=== PATIENT | male | born 1940 | race Caucasian/White ===

== ENCOUNTER → 2020-02-16 | Day surgery (SDC) | payer MEDICARE, BC ==
[~2020-02-16] MED LIST: Dextrose 5%-Lactated Ringers 1,000 ML IV SCH; Propofol 200 MG/20 ML SDV ONE
--- NOTE | 2020-02-22 10:28 | OR ---
DATE OF PROCEDURE: 02/16/2020 SURGEON: Hi Garcia MD PREOPERATIVE DIAGNOSIS: Probable recent upper GI bleeding with development of significant anemia. POSTOPERATIVE DIAGNOSES: 1. Probable recent upper GI bleeding with development of significant anemia. 2. Erosive antral gastritis (no active bleeding). OPERATIVE PROCEDURE: Esophagogastroduodenoscopy with antral biopsies for CLOtest. ANESTHESIA: IV sedation. INDICATION FOR PROCEDURE: This is an 79-year-old presenting with some recent episodes of some black stools and the hemoglobin had fallen from 13 to 9. The patient was noted to have a high pro time with an INR in excess of 4. He has held that, and present INR today is down to 2.2. The plan is to proceed with upper GI endoscopy with biopsies as indicated. Potential risks including bleeding and perforation were discussed, and the patient wishes to proceed. DETAILS OF PROCEDURE: The patient was taken to the operating room, placed in a left lateral decubitus position. IV sedation was administered, after which the upper GI endoscope was passed orally through the esophagus and into the stomach, with retroflexion view of the fundus, and thereafter through the pyloric channel into the junction of the 3rd and 4th portions of the duodenum. Findings included normal hypopharynx, larynx, upper esophageal sphincter, esophageal body. At the EG junction there was no significant hiatal hernia nor was there inflammation or signs of plaquing or neoplasia. Within the stomach there was small amount of retained bile. The proximal stomach was relatively unremarkable; however, in the antrum, there was quite intense gastritis with several erosions. These were presently covered with some fibrinous type exudate. These appeared to be healing and were not associated with any active bleeding. The pyloric channel and visualized portions of the duodenum were otherwise unremarkable. At this point, biopsies were obtained from the antrum and sent for CLOtest for H. pylori. Minimal bleeding from the biopsy sites was seen, and the procedure was then concluded. The patient will be started on Pepcid 40 mg daily and Vitron-C 1 tablet daily and he will be set up to see Dr. Hamilton in 2 weeks for the CBC, ferritin, B12, and folate levels to be drawn at that time. We will have the [facility] nurses contact [facility] to get a schedule for restarting the patient's Coumadin, obviously at a somewhat lower low-dose than which he has been taking. Hi Garcia MD /[id number]
== END ==
LOC: JP.SDS 08:14
PROVIDERS: ATTEND Surgery
DX: K29.70 Gastritis, unspecified, without bleeding (principal); K25.9 Gastric ulcer, unspecified as acute or chronic, without hemorrhage or perforation; J44.9 Chronic obstructive pulmonary disease, unspecified; I11.0 Hypertensive heart disease with heart failure; I50.9 Heart failure, unspecified; E78.5 Hyperlipidemia, unspecified; G47.33 Obstructive sleep apnea (adult) (pediatric); Z11.59 Encounter for screening for other viral diseases; Z99.89 Dependence on other enabling machines and devices
CPT/HCPCS: 36415; 43239; 85610; 87081; J2704; U0002

== ENCOUNTER 2021-11-18 09:19 | Emergency (ER) | payer MEDICARE, BC ==
[2021-11-18 10:56] LABS: CORONAVIRUS COVID-19 NAA POSITIVE (NEGATIVE)
== END 2021-11-18 12:40 | disposition home or self-care (01) ==
LOC: JP.ED 09:19
DX: U07.1 COVID-19 (principal); J40 Bronchitis, not specified as acute or chronic; Z88.0 Allergy status to penicillin; Z88.1 Allergy status to other antibiotic agents; Z88.8 Allergy status to other drugs, medicaments and biological substances; Z79.82 Long term (current) use of aspirin; Z79.01 Long term (current) use of anticoagulants; Z79.899 Other long term (current) drug therapy; Z86.73 Personal history of transient ischemic attack (TIA), and cerebral infarction without residual deficits; Z87.891 Personal history of nicotine dependence
CPT/HCPCS: 0241U; 36415; 71045; 80053; 85025; 99282; 99284-25

== ENCOUNTER 2024-12-19 17:35 | Emergency (ER) | payer MEDICARE, BC ==
[2024-12-19] MEDS: Aspirin 81 MG Tab.Chew PO ONE (18:31)
[2024-12-19 18:40] LABS: BASOPHILS ABSOLUTE AUTO 0.04 K/uL (0.00-0.10); BASOPHILS PERCENT AUTO 0.4 % (0.1-1.3); EOSINOPHILS ABSOLUTE AUTO 0.04 K/uL (0.00-0.40); EOSINOPHILS PERCENT AUTO 0.4 % (0.0-5.4); HEMATOCRIT 31.4 % (38.4-49.7); IMMATURE GRAN ABSOLUTE AUTO 0.03 K/uL (0.00-0.23); IMMATURE GRAN PERCENT AUTO 0.3 % (0.0-0.7); LYMPHOCYTES PERCENT AUTO 14.1 % (11.4-47.7); MEAN CORPUSCULAR HEMOGLOBIN 25.1 pg (31.6-35.5); MEAN CORPUSCULAR HGB CONC 28.7 g/dL (31.6-35.5); MEAN CORPUSCULAR VOLUME 87.5 fL (81.4-99.0); MONOCYTES ABSOLUTE AUTO 0.84 K/uL (0.20-0.90); MONOCYTES PERCENT AUTO 9.1 % (3.3-12.6); NEUTROPHILS ABSOLUTE AUTO 6.96 K/uL (1.0-7.6); NEUTROPHILS PERCENT AUTO 75.7 % (40.0-78.1); PLATELET COUNT,PLT 182 K/uL (130-375); WHITE BLOOD CELL COUNT,WBC 9.2 K/uL (3.2-11.0)
[2024-12-19 18:51] LABS: RED BLOOD CELL COUNT 3.59 M/uL (4.14-5.76)
[2024-12-19 19:01] LABS: INR 2.1; PROTHROMBIN TIME 21.2 sec (9.2-10.6)
[2024-12-19 19:04] LABS: A/G RATIO 0.7 (1.2-2.2); ALANINE AMINOTRANSFERASE,ALT 19 U/L (12-78); ALBUMIN 3.3 g/dL (3.4-5.0); ALKALINE PHOSPHATASE 84 U/L (46-116); ASPARTATE AMNIOTRANSFERASE,AST 18 U/L (15-37); BILIRUBIN TOTAL 1.3 mg/dL (0.2-1.0); BLOOD UREA NITROGEN,BUN 30 mg/dL (7-18); CALCIUM 9.2 mg/dL (8.5-10.1); CARBON DIOXIDE,CO2 29 mmol/L (21-32); CHLORIDE,CL 101 mmol/L (100-108); CREATININE 1.3 mg/dL (0.8-1.3); EST CRCL DRUG DOSING (CG) 40.79 mL/min; ESTIMATED GFR 54 mL/min (>60); GLUCOSE RANDOM 124 mg/dL (74-106); PROTEIN TOTAL,TP 8.1 g/dL (6.4-8.2); SODIUM,NA 139 mmol/L (140-148); TROPONIN I HIGH SENSITIVITY 33.9 pg/mL (<=60.3)
[2024-12-19] MEDS: Sodium Chloride 0.9% 250 ML IV SCH (20:18)
[2024-12-19] MEDS: Iopamidol 755 Mg/ML 100 ML Bottle IV SCH (20:48)
[2024-12-19] MEDS: Sodium Chloride 0.9% 100 ML IV SCH (20:48)
== END 2024-12-19 22:07 | disposition home or self-care (01) ==
LOC: JP.ED 17:35
DX: R20.2 Paresthesia of skin (principal); R07.89 Other chest pain; I11.0 Hypertensive heart disease with heart failure; I50.9 Heart failure, unspecified; I25.2 Old myocardial infarction; J44.9 Chronic obstructive pulmonary disease, unspecified; Z95.0 Presence of cardiac pacemaker; Z88.0 Allergy status to penicillin; Z88.8 Allergy status to other drugs, medicaments and biological substances; Z79.82 Long term (current) use of aspirin; Z79.01 Long term (current) use of anticoagulants; Z79.899 Other long term (current) drug therapy; Z86.73 Personal history of transient ischemic attack (TIA), and cerebral infarction without residual deficits
CPT/HCPCS: 36415; 71046; 71275; 80053; 83605; 84484; 85025; 85379; 85610; 96360; 96361; 99285; J7050; Q9967